=== PATIENT | female | born 1940 | race Caucasian/White ===

== ENCOUNTER 2018-11-23 07:20 | Outpatient (CLI) | payer OTHER ==
[~2018-11-23 07:20] MED LIST: ASA325 M1; ASACOL HD800 MG PO; CIPRO500 MG PO; CRESTOR5 MG PO; FLAGYL500MG PO; HYZAAR 100-251 UDTAB PO; INTESTINEX1 CA1 PO; Lipitor PO; METFORMIN HCL500 MG; METFORMIN HCL500 MG PO; NEURONTIN300 MG; PREVACID15 MG; ULTRACET; ZANTAC150 MG PO; ZOCOR5 MG
== END 2018-11-23 07:22 | disposition home or self-care (01) ==
LOC: NUCLEAR 07:20
DX: I20.8 Other forms of angina pectoris (principal); R00.2 Palpitations; I49.3 Ventricular premature depolarization
CPT/HCPCS: 78452; 93017; A9500; J0153

== ENCOUNTER → 2020-12-03 13:42 | Outpatient (CLI) | payer OTHER | END | disposition home or self-care (01) | LOC: NUCLEAR 13:00 | PROVIDERS: ATTEND Psychiatry & Neurology Neurology | DX: G30.8 Other Alzheimer's disease (principal) | CPT/HCPCS: 78803; A9557 ==